=== PATIENT | female | born 1940 ===

== ENCOUNTER 2017-11-27 07:57 | Outpatient (CLI) | payer OTHER ==
[~2017-11-27] VITALS: Ht 149.9 cm; Wt 44.5 kg
[2017-11-27] MEDS ORDERED: CLARITIN10 MG PO (09:24)
[2017-11-27] MEDS ORDERED: FLONASE16 GM NASAL (09:24)
== END 2017-11-27 08:15 | disposition home or self-care (01) ==
LOC: OFIC 805 07:57
DX: J31.0 Chronic rhinitis (principal); H90.3 Sensorineural hearing loss, bilateral; J34.2 Deviated nasal septum; J34.3 Hypertrophy of nasal turbinates